=== PATIENT | male | born 1945 ===

== ENCOUNTER 2024-11-09 08:51 | Day surgery (SDC) | payer OTHER, MEDICARE ==
[2024-11-09 08:51] LABS: Absolute Basophils 0.1 K/uL (0-0.5); Absolute Eosinophils 0.1 K/uL (0-0.5); Absolute Lymphocytes (CBC) 1.4 K/uL (0.7-4.9); Absolute Monocytes 0.6 K/uL (0.1-1.3); Absolute Neutrophil 3.3 K/uL (1.8-8.0); Basophils % 1.3 % (0-1.3); Eosinophils % 2.3 % (0-4.4); Hematocrit 38.2 % (39.6-49.0); Hemoglobin 13.4 g/dL (13.6-17.9); MCH 34.7 pg (27.0-35.0); MCHC 35.2 g/dL (32.0-36.0); MCV 98.6 fL (80-100); MPV 7.5 fL (7.6-11.3); Monocytes % 10.6 % (3.3-12.3); Neutrophils % 59.8 % (41.7-73.7); Nucleated Red Blood Cells % 0.1 % (0-0); Platelets 192 thou/uL (152-406); RBC Red Blood Cell Count 3.88 M/uL (4.33-5.43)
[2024-11-09 09:16] LABS: Albumin 3.8 g/dL (3.4-5.0); Albumin/Globulin Ratio 1.2 (1.1-1.8); Anion Gap 10.2 mEq/L (5.0-15.0); Bilirubin Direct 0.3 mg/dL (0-0.2); Bilirubin Indirect, Calculated 1.2 mg/dL (0.2-0.8); Bilirubin Total 1.5 mg/dL (0.2-1.0); Globulin 3.2 g/dL (2.3-3.5); Potassium 4.2 mEq/L (3.5-5.1)
--- NOTE | 2024-11-09 09:23 | RAD REPORT ---
EXAMINATION: TWO VIEW CHEST XR CLINICAL INDICATION: Pre-op pending cholecystectomy TECHNIQUE: 2 views of the chest was performed. COMPARISON: No prior exam. FINDINGS: The lungs are well inflated and clear. The heart is upper limit of normal in size. No displaced fract ures evident. Right-sided stimulator device noted. IMPRESSION: No acute or significant abnormalities.
[2024-11-09] MEDS: Ringers Lactate 1,000 ML IV ONE ×2 (09:30→12:30)
[2024-11-09] MEDS ORDERED: LIDOCAINE 1% MPF 5 ML VIAL ONE (10:35)
[2024-11-09] MEDS ORDERED: FENTANYL CITR 100 MCG/2 ML ONE (10:35)
[2024-11-09] MEDS ORDERED: propofoL 200 MG/20 ML VIAL IV ONE (10:35)
[2024-11-09] MEDS ORDERED: ONDANSETRON 4 MG/2 ML VIAL ONE (10:35)
[2024-11-09] MEDS ORDERED: MIDAZOLAM HCL 2 MG/2 ML INJ ONE (10:36)
[2024-11-09] MEDS ORDERED: ROCURONIUM 50 MG/5 ML VIAL IV ONE (10:36)
[2024-11-09] MEDS: CEFOXITIN SODIUM 1 GM/VIAL ONE (11:45)
[2024-11-09] MEDS ORDERED: GLYCOPYRROLATE 0.2 MG/ML SYR ONE (11:45)
--- NOTE | 2024-11-09 11:55 | EKG ---
Test Date: 2024-11-09 Test Time: 08:34:15 Recruiting Associate: DHEERAJ MEASUREMENT RESULTS: Intervals: Rate: 53 ID: [id number] QRSD: 84 QT: 410 QTc: 384 Peerless: P: 44 ID: [id number] QRS: 28 T: 50 INTERPRETIVE STATEMENTS: Sinus bradycardia Otherwise normal ECG No previous ECG available for comparison Electronically Signed On 11-09-24 11:55:09 CDT by Mat Higuera
[2024-11-09] MEDS ORDERED: EPHEDRINE SULF 50 MG/ML VIAL ONE (12:05)
[2024-11-09] MEDS ORDERED: Mastisol Adhesive Liq ONE (12:24)
--- NOTE | 2024-11-09 12:30 | P.BOP ---
Preoperative diagnosis: acute cholecystitis, biliary dyskinesia, symptomatic cholelithiasis(sludge) Postoperative diagnosis: same Primary procedure: Laparoscopic cholecystectomy Estimated blood loss: <10cc Specimen: gb Findings: as above Anesthesia: General Complications: None Transferred to: Recovery Room Condition: Good
[2024-11-09] MEDS: FENTANYL CITR 100 MCG/2 ML ONE (12:47)
[2024-11-09] MEDS: HYDROMORPHONE HCL 1 MG/ML INJ ONE (13:03)
[2024-11-09] MEDS: MEPERIDINE HCL 25 MG/ML SYR ONE (13:10)
[2024-11-09] MEDS ORDERED: KETOROLAC 30 MG/ML INJ ONE (13:13)
[2024-11-09] MEDS ORDERED: HYDROCODONE/APAP 10/325 TAB ONE (13:44)
[2024-11-09] MEDS: HYDROCODONE/APAP 10/325 TAB PO ONE (13:47)
[2024-11-09 14:09] VITALS: BP 153/77; TEMP 97.9
[2024-11-09 14:53] VITALS: O2SAT 97
--- NOTE | 2024-11-09 23:14 | OP ---
Date of Procedure: 11/09/2024 Surgeon: Himanshu Groves MD Preoperative Diagnoses: Acute cholecystitis, biliary dyskinesia, right upper quadrant abdominal pain , symptomatic cholelithiasis with sludge. Postoperative Diagnoses: Acute cholecystitis, biliary dyskinesia, right upper quadrant abdominal sinai n, symptomatic cholelithiasis with sludge. Procedure: Laparoscopic cholecystectomy. Estimated Blood Loss: Less than 10 cc. Findings: An inflamed gallbladder with multiple omental adhesions to it. Anesthesia: General plus local. Indication: This is a case of a 79-year-old patient who comes to us with above diagnoses. Fully exp lained the benefits, alternatives, and risks of laparoscopic, possible open cholecystectomy, which in clude, but not limited to infection, bleeding, damage to adjacent structures, anesthesia complication , choledocholithiasis, bile leak, pancreatitis, ME, and even . He also understands this may not relieve any symptoms. He might need more than one surgical intervention. He understood, signed a c onsent. We obtained a cardiac clearance from his slps in [place]. Normally he is taking nal trexone as an opioid antagonist. After the surgery, he is going to be receiving some pain medication obviously because of a surgical intervention. I encouraged him to discuss that case with his primar y doctor to see if the naltrexone could be put on hold or not. He is going to contact his doctor. O ther than that, he signed a consent. Procedure In Detail: The patient was brought to the operating room, placed in supine position. Anes thesia was without complication. Abdominal area was prepped and draped in usual sterile fashion. Ma rcaine 0.5% was injected for local anesthetic, followed by sharp incision of the skin in the supraumb ilical region. Incision was carried down to fascia, which was opened under direct vision. Peritoneu m was encountered, opened under direct vision. Vicryl #1 placed inside the fascia. Elvira trocar wa s carefully introduced. No bleeding was obtained. I placed 3 more trocars, 5 mm each one of them, 1 in the epigastric area, 2 in the right upper quadrant. Using same technique, which consisted of loc al anesthetic, sharp incision of the skin, introduction of the trocars under direct vision. This all owed me to put a grasper in the fundus of the gallbladder. There were many omental adhesions to the gallbladder. So, with the help of LigaSure we have to take these adhesions down. Then, we identifie d the infundibulum and then the gallbladder was retracted in the inferolateral fashion exposing the t riangle of [place], obtaining critical view. The cystic duct and cystic artery were clearly isolated a nd freed circumferentially, and a connection between those and the gallbladder were clearly identifie d. I proceeded to ligate those by using at least 3 clips proximal and 1 clip distal, ligation in the middle. Same was done with the cystic artery. No bile leak, no bleeding. The gallbladder was waylon aniya from liver using Bovie cauterizer and removed from abdominal cavity using EndoCatch through the u mbilical incision. The area was inspected once again, no bile leak, no bleeding. At that moment, I proceeded to remove the trocars under direct vision, deflated pneumoperitoneum. Closed the fascia wi th #1 Vicryl. Irrigated with subcutaneous tissue, closed that with 3-0 chromic and skin in a subcuti cular fashion with a Steri-Strip. The sponge count and instrument counts were correct. The patient tolerated the procedure well. The patient was sent to Recovery in stable condition. JEREMY/OCTAVIO Voice ID: [id number] Report ID: [id number]
--- NOTE | 2024-11-09 23:14 | DS ---
Date of Discharge: 11/09/2024 Diagnoses: Acute cholecystitis, biliary dyskinesia, right upper quadrant abdominal pain, symptomatic cholelithiasis. Procedure: Laparoscopic cholecystectomy Condition: Stable. Disposition: Home. Activity: As tolerated. No heavy lifting. Follow up in my office in 1 week. Call for appointment [phone]. Keep area dry for 48 hours, then may shower. Keep Steri-Strip intact. Once again, we aske d him to discuss his medications with the primary doctor, especially naltrexone in the light of since the patient will be having some narcotics after the surgery. JEREMY/OCTAVIO Voice ID: [id number] Report ID: [id number]
== END 2024-11-09 14:40 | disposition home or self-care (01) ==
LOC: OR 08:51
PROVIDERS: ATTEND Surgery
PROC: 0FT44ZZ Resection of Gallbladder, Percutaneous Endoscopic Approach (ICD-10-PCS; principal; 2024-11-09 11:30)
DX: K80.10 Calculus of gallbladder with chronic cholecystitis without obstruction (principal); K82.8 Other specified diseases of gallbladder; R10.11 Right upper quadrant pain; K81.1 Chronic cholecystitis
CPT/HCPCS: 93005; 85025; 80048; 36415; 80076; 88304; 83690; 71046; 47562; J2704; J2003; J2250; J3010 ×2; J2175; J1171; J0694; J2405; J7120 ×2